=== PATIENT | female | born 1935 | race Caucasian/White ===

== ENCOUNTER 2019-04-21 16:30 | Emergency (ER) | payer MEDICARE, OTHER ==
[~2019-04-21] VITALS: Ht 170.2 cm; Wt 70.3 kg
--- NOTE | 2019-04-21 16:45 | NUR ---
plPatient to ER bed 8 to gown for evaluation. Side rails up. Report given to Jayme.
[2019-04-21 16:46] VITALS: BP_SYST 154
--- NOTE | 2019-04-21 16:50 | NUR ---
pt came for multiple complaints, lethargy, BLE, altered mental status. Pt currently AO4, resting in bed comfortably with family at bedside, pt awaiting
--- NOTE | 2019-04-21 16:52 | NUR ---
DR RITCHIE AT BEDSIDE FOR EVALUATION
--- NOTE | 2019-04-21 16:55 | NUR ---
DR RITCHIE REQUESTING TO SPEAK WITH FAMILY, FAMILY CALLED TO BEDSIDE.
--- NOTE | 2019-04-21 17:00 | NUR ---
DR RITCHIE SPEAKING WITH FAMILY AND PT IN ROOM 8
--- NOTE | 2019-04-21 17:30 | NUR ---
urine sent to lab
--- NOTE | 2019-04-21 17:40 | NUR ---
labs collected at bedside
[2019-04-21 17:54] LABS: BASOPHILS # (AUTO) 0.1 K/uL (0.0-0.2); EOSINOPHILS # (AUTO) 0.1 K/uL (0.0-0.4); HEMATOCRIT 28.3 % (36-48); HEMOGLOBIN 9.5 g/dL (12.0-16.0); LYMPHOCYTES # (AUTO) 1.7 K/uL (1.0-5.5); LYMPHOCYTES % (AUTO) 26.9 % (20.5-51.5); MEAN CORPUSCULAR HEMOGLOBIN 33 pg (27-31); MEAN CORPUSCULAR HGB CONC 34 % (32-36); MEAN CORPUSCULAR VOLUME 98 fL (79.0-98.0); MONOCYTES # (AUTO) 0.3 K/uL (0.0-1.0); MONOCYTES % (AUTO) 5.1 % (1.7-9.3); NEUTROPHILS # (AUTO) 4.1 K/uL (1.8-7.7); PLATELET COUNT (AUTO) 228 K/uL (130-430); RED BLOOD CELL COUNT(AUTO) 2.89 MIL/uL (4.2-6.2); RED CELL DISTRIBUTION WIDTH 13.3 % (9.0-15.0); WHITE BLOOD COUNT (AUTO) 6.3 K/uL (4.8-10.8)
[2019-04-21 18:03] LABS: BILIRUBIN,URINE NEGATIVE (NEGATIVE); BLOOD, URINE 1+ (NEGATIVE); CLARITY/URINE CLEAR (CLEAR); COLOR,URINE YELLOW (YELLOW); GLUCOSE,URINE NEGATIVE (NEGATIVE); KETONES,URINE NEGATIVE (NEGATIVE); LEUKOCYTE ESTERASE ,URINE TRACE (NEGATIVE); NITRITE, URINE NEGATIVE (NEGATIVE); PROTEIN URINE 2+ (NEGATIVE); UROBILINOGEN,URINE 0.2 (0.2-1.0)
[2019-04-21 18:10] LABS: ANION GAP 8 (5-15); CALCIUM 8.4 mg/dL (8.4-11.0); CHLORIDE 102 mmol/L (98-107); CREATININE 2.25 mg/dL (0.55-1.30); GLUCOSE 229 mg/dL (70-99); POTASSIUM 4.3 mmol/L (3.5-5.1); SODIUM SERUM 133 mmol/L (136-145); UREA NITROGEN, BLOOD 46 mg/dL (8-21)
[2019-04-21 18:15] LABS: ALANINE AMINOTRANSFERASE 24 U/L (12-78); ALBUMIN 3.6 g/dL (3.4-4.8); ASPARTATE AMINOTRANSFERASE 22 U/L (10-37); TOTAL BILIRUBIN 0.4 mg/dL (0.0-1.0)
[2019-04-21] MEDS ORDERED: INSULIN REGULAR, HUMAN 10 UNITS/0.1 ML INJ SUBCUT ONE (18:15)
--- NOTE | 2019-04-21 18:30 | NUR ---
pt given insulin humulin R 3 units given for blood glucose 198, tolerated well. Will continue to monitor
[2019-04-21 18:35] LABS: BACTERIA,URINE FEW /HPF (None Seen); MUCUS,URINE None Seen /LPF (None Seen); RBC,URINE NONE SEEN /HPF (0-3)
[2019-04-21 19:10] VITALS: BP_SYST 154
--- NOTE | 2019-04-21 19:10 | NUR ---
Patient given written and verbal discharge instructions and verbalizes understanding. ER MD discussed with patient the results and treatment provided. Patient in stable condition. ID arm band removed. Patient educated on pain management and to follow up with PMD. Pain Scale 0. Opportunity for questions provided and answered. Medication side effect fact sheet provided.
== END 2019-04-21 19:10 | disposition home or self-care (01) ==
LOC: SED 16:30
DX: E11.65 Type 2 diabetes mellitus with hyperglycemia (principal); D64.9 Anemia, unspecified; I13.0 Hypertensive heart and chronic kidney disease with heart failure and stage 1 through stage 4 chronic kidney disease, or unspecified chronic kidney disease; E11.22 Type 2 diabetes mellitus with diabetic chronic kidney disease; N18.9 Chronic kidney disease, unspecified; I50.9 Heart failure, unspecified; Z91.14 Patient's other noncompliance with medication regimen
CPT/HCPCS: 36415; 71045; 80053; 81000-TC; 82962; 83880; 84484; 85025; 93005; 96372; 99284; J1815

== ENCOUNTER 2022-06-03 13:30 | Inpatient (IN) | payer OTHER ==
[~2022-06-03] VITALS: Ht 157.5 cm; Wt 62.1 kg
[2022-06-03 13:30] VITALS: BP_SYST 148
[2022-06-03] MEDS ORDERED: cefTRIAXone 1 GM IVPB PREMIX 50 ML IV ONE (13:45)
[2022-06-03 14:49] LABS: BASOPHILS % (AUTO) 0.8 % (0.0-2.0); EOSINOPHILS # (AUTO) 0.2 K/uL (0.0-0.4); EOSINOPHILS % (AUTO) 3.6 % (0.0-4.0); HEMATOCRIT 24.1 % (36-48); HEMOGLOBIN 8.2 g/dL (12.0-16.0); LYMPHOCYTES # (AUTO) 1.1 K/uL (1.0-5.5); MEAN CORPUSCULAR HEMOGLOBIN 33 pg (27-31); MEAN CORPUSCULAR HGB CONC 34 % (32-36); MEAN CORPUSCULAR VOLUME 98 fL (79.0-98.0); MONOCYTES # (AUTO) 0.4 K/uL (0.0-1.0); MONOCYTES % (AUTO) 7.8 % (1.7-9.3); NEUTROPHILS % (AUTO) 64.8 % (40.0-70.0); PLATELET COUNT (AUTO) 197 K/uL (130-430); RED BLOOD CELL COUNT(AUTO) 2.47 MIL/uL (4.2-6.2); RED CELL DISTRIBUTION WIDTH 13.8 % (9.0-15.0); WHITE BLOOD COUNT (AUTO) 4.6 K/uL (4.8-10.8)
[2022-06-03 14:59] LABS: ALANINE AMINOTRANSFERASE 15 U/L (12-78); ALBUMIN 3.6 g/dL (3.4-4.8); ANION GAP 17 (5-15); ASPARTATE AMINOTRANSFERASE 18 U/L (10-37); CALCIUM 9.1 mg/dL (8.4-11.0); CHLORIDE 98 mmol/L (98-107); CREATININE 3.32 mg/dL (0.55-1.30); GLUCOSE 125 mg/dL (70-99); TOTAL BILIRUBIN 0.4 mg/dL (0.0-1.0)
[2022-06-03] MEDS ORDERED: CLOP75TA32 PO (15:18)
[2022-06-03] MEDS ORDERED: FURO-149 PO (15:18)
[2022-06-03] MEDS ORDERED: FERR325T91 PO (15:18)
[2022-06-03] MEDS ORDERED: HYDR100T25 PO (15:19)
[2022-06-03] MEDS ORDERED: LORA0.5T PO (15:19)
[2022-06-03] MEDS ORDERED: CLON0.1T PO (15:19)
[2022-06-03] MEDS ORDERED: METO-442 PO (15:19)
[2022-06-03] MEDS ORDERED: MEGE40TA PO (15:19)
[2022-06-03] MEDS ORDERED: NIFE30TA84 PO (15:19)
[2022-06-03] MEDS ORDERED: NACL 0.9% 1,000 ML IV ONE (16:45)
[2022-06-03] MEDS: 0.45% NACL 1,000 ML IV SCH (18:40)
[2022-06-03 20:49] VITALS: BP_SYST 168
[2022-06-04] VITALS: BP_SYST 143
[2022-06-04 07:50] VITALS: BP_SYST 158
[2022-06-04 12:01] VITALS: BP_SYST 154
[2022-06-04] MEDS ORDERED: METOPROLOL TARTRATE 50 MG TABLET PO ONE (12:15)
[2022-06-04] MEDS: 0.45% NACL 1,000 ML IV SCH ×2 (12:26→21:10)
[2022-06-04] MEDS: MEGESTROL ACETATE 40 MG TABLET PO SCH ×2 (15:38→21:10)
[2022-06-04] MEDS: cloNIDine HCL 0.1 MG TABLET PO PRN (15:38)
[2022-06-04 16:41] VITALS: BP_SYST 153
[2022-06-04 20:00] VITALS: BP_SYST 149
[2022-06-04] MEDS ORDERED: PANTOPRAZOLE SODIUM 40 MG/VIAL (PROTONIX) IVP ONE (20:00)
[2022-06-04] MEDS: hydrALAZINE HCL 25 MG TABLET PO SCH (21:09)
[2022-06-04] MEDS: INSULIN REGULAR, HUMAN 100 UNITS/ML, 3 ML VIAL (humuLIN R) SUBCUT PRN (21:20)
[2022-06-05 01:29] VITALS: BP_SYST 132
[2022-06-05 04:27] LABS: BASOPHILS % (AUTO) 0.9 % (0.0-2.0); EOSINOPHILS # (AUTO) 0.2 K/uL (0.0-0.4); EOSINOPHILS % (AUTO) 4.1 % (0.0-4.0); LYMPHOCYTES # (AUTO) 1.7 K/uL (1.0-5.5); LYMPHOCYTES % (AUTO) 33.1 % (20.5-51.5); MEAN CORPUSCULAR HEMOGLOBIN 33 pg (27-31); MEAN CORPUSCULAR HGB CONC 35 % (32-36); MEAN CORPUSCULAR VOLUME 97 fL (79.0-98.0); MONOCYTES # (AUTO) 0.5 K/uL (0.0-1.0); MONOCYTES % (AUTO) 9.1 % (1.7-9.3); NEUTROPHILS # (AUTO) 2.7 K/uL (1.8-7.7); NEUTROPHILS % (AUTO) 52.8 % (40.0-70.0); PLATELET COUNT (AUTO) 169 K/uL (130-430); RED BLOOD CELL COUNT(AUTO) 2.08 MIL/uL (4.2-6.2); RED CELL DISTRIBUTION WIDTH 13.8 % (9.0-15.0); WHITE BLOOD COUNT (AUTO) 5.1 K/uL (4.8-10.8)
[2022-06-05 04:43] LABS: ANION GAP 13 (5-15); CALCIUM 7.9 mg/dL (8.4-11.0); CHLORIDE 106 mmol/L (98-107); GLUCOSE 105 mg/dL (70-99); UREA NITROGEN, BLOOD 88 mg/dL (8-21)
[2022-06-05 06:59] LABS: HEMOGLOBIN 6.9 g/dL (12.0-16.0)
[2022-06-05 07:00] LABS: HEMATOCRIT 20.1 % (36-48)
[2022-06-05 08:00] VITALS: BP_SYST 142
[2022-06-05] MEDS: MEGESTROL ACETATE 40 MG TABLET PO SCH ×3 (08:37→20:40)
[2022-06-05] MEDS: METOPROLOL TARTRATE 50 MG TABLET PO SCH (08:37)
[2022-06-05] MEDS: PANTOPRAZOLE SODIUM 40 MG/VIAL (PROTONIX) IVP SCH (08:38)
[2022-06-05] MEDS: hydrALAZINE HCL 25 MG TABLET PO SCH ×2 (08:39→20:42)
[2022-06-05] MEDS ORDERED: CLOPIDOGREL BISULFATE 75 MG TABLET PO SCH (09:00)
[2022-06-05] MEDS: 0.45% NACL 1,000 ML IV SCH ×2 (10:00→23:20)
[2022-06-05 11:47] VITALS: BP_SYST 113
[2022-06-05 16:46] VITALS: BP_SYST 121
[2022-06-05 17:52] LABS: TOTAL IRON BIND. CAPACITY 181 ug/dL (250-450)
[2022-06-05 20:00] VITALS: BP_SYST 152
[2022-06-05] MEDS: DOCUSATE SODIUM 100 MG CAPSULE PO SCH (20:41)
[2022-06-06 00:54] VITALS: BP_SYST 141
[2022-06-06 07:28] LABS: ANION GAP 12 (5-15); CALCIUM 8.4 mg/dL (8.4-11.0); CHLORIDE 106 mmol/L (98-107); CREATININE 2.65 mg/dL (0.55-1.30); GLUCOSE 94 mg/dL (70-99); UREA NITROGEN, BLOOD 83 mg/dL (8-21)
[2022-06-06 07:38] LABS: BASOPHILS % (AUTO) 0.9 % (0.0-2.0); EOSINOPHILS # (AUTO) 0.2 K/uL (0.0-0.4); EOSINOPHILS % (AUTO) 4.2 % (0.0-4.0); HEMATOCRIT 28.5 % (36-48); HEMOGLOBIN 9.8 g/dL (12.0-16.0); LYMPHOCYTES # (AUTO) 1.4 K/uL (1.0-5.5); LYMPHOCYTES % (AUTO) 25.1 % (20.5-51.5); MEAN CORPUSCULAR HEMOGLOBIN 32 pg (27-31); MEAN CORPUSCULAR HGB CONC 34 % (32-36); MEAN CORPUSCULAR VOLUME 93 fL (79.0-98.0); MONOCYTES # (AUTO) 0.5 K/uL (0.0-1.0); MONOCYTES % (AUTO) 9.3 % (1.7-9.3); NEUTROPHILS # (AUTO) 3.4 K/uL (1.8-7.7); NEUTROPHILS % (AUTO) 60.5 % (40.0-70.0); PLATELET COUNT (AUTO) 158 K/uL (130-430); RED BLOOD CELL COUNT(AUTO) 3.06 MIL/uL (4.2-6.2); RED CELL DISTRIBUTION WIDTH 16.1 % (9.0-15.0); WHITE BLOOD COUNT (AUTO) 5.6 K/uL (4.8-10.8)
[2022-06-06 08:03] VITALS: BP_SYST 175
[2022-06-06] MEDS: PANTOPRAZOLE SODIUM 40 MG/VIAL (PROTONIX) IVP SCH (08:33)
[2022-06-06] MEDS: MEGESTROL ACETATE 40 MG TABLET PO SCH ×3 (08:34→20:58)
[2022-06-06] MEDS: DOCUSATE SODIUM 100 MG CAPSULE PO SCH ×2 (08:34→20:58)
[2022-06-06] MEDS: METOPROLOL TARTRATE 50 MG TABLET PO SCH (08:34)
[2022-06-06] MEDS: hydrALAZINE HCL 25 MG TABLET PO SCH ×2 (08:34→20:57)
[2022-06-06 11:33] VITALS: BP_SYST 104
[2022-06-06] MEDS: 0.45% NACL 1,000 ML IV SCH ×2 (12:40→19:26)
[2022-06-06 15:22] VITALS: BP_SYST 153
[2022-06-06] MEDS ORDERED: METHYL SALICYLATE/MENTH/CAMPH 57 GM CREAM..G. TP ONE (18:00)
[2022-06-06 20:00] VITALS: BP_SYST 181
[2022-06-06] MEDS: METHYL SALICYLATE/MENTH/CAMPH 57 GM CREAM..G. TP SCH (21:08)
[2022-06-07] VITALS (7 sets, daily range): BP systolic 127–181
[2022-06-07] MEDS: cloNIDine HCL 0.1 MG TABLET PO PRN ×2 (06:41→20:53)
[2022-06-07 07:17] LABS: BASOPHILS % (AUTO) 0.7 % (0.0-2.0); EOSINOPHILS # (AUTO) 0.2 K/uL (0.0-0.4); EOSINOPHILS % (AUTO) 3.7 % (0.0-4.0); HEMATOCRIT 29.7 % (36-48); HEMOGLOBIN 10.2 g/dL (12.0-16.0); LYMPHOCYTES # (AUTO) 1.2 K/uL (1.0-5.5); LYMPHOCYTES % (AUTO) 20.1 % (20.5-51.5); MEAN CORPUSCULAR HEMOGLOBIN 32 pg (27-31); MEAN CORPUSCULAR HGB CONC 34 % (32-36); MEAN CORPUSCULAR VOLUME 93 fL (79.0-98.0); MONOCYTES # (AUTO) 0.6 K/uL (0.0-1.0); MONOCYTES % (AUTO) 9.7 % (1.7-9.3); NEUTROPHILS % (AUTO) 65.8 % (40.0-70.0); PLATELET COUNT (AUTO) 162 K/uL (130-430); WHITE BLOOD COUNT (AUTO) 6.1 K/uL (4.8-10.8)
[2022-06-07 07:33] LABS: ALANINE AMINOTRANSFERASE 18 U/L (12-78); ANION GAP 12 (5-15); ASPARTATE AMINOTRANSFERASE 17 U/L (10-37); CALCIUM 8.6 mg/dL (8.4-11.0); CHLORIDE 107 mmol/L (98-107); CREATININE 2.39 mg/dL (0.55-1.30); GLUCOSE 127 mg/dL (70-99); TOTAL BILIRUBIN 0.5 mg/dL (0.0-1.0); UREA NITROGEN, BLOOD 74 mg/dL (8-21)
[2022-06-07] MEDS: PANTOPRAZOLE SODIUM 40 MG/VIAL (PROTONIX) IVP SCH (08:24)
[2022-06-07] MEDS: METHYL SALICYLATE/MENTH/CAMPH 57 GM CREAM..G. TP SCH ×3 (08:24→21:16)
[2022-06-07] MEDS: MEGESTROL ACETATE 40 MG TABLET PO SCH ×3 (08:25→21:07)
[2022-06-07] MEDS: DOCUSATE SODIUM 100 MG CAPSULE PO SCH ×2 (08:25→20:50)
[2022-06-07] MEDS: METOPROLOL TARTRATE 50 MG TABLET PO SCH (08:27)
[2022-06-07] MEDS: hydrALAZINE HCL 25 MG TABLET PO SCH ×2 (08:28→20:50)
[2022-06-07] MEDS: INSULIN REGULAR, HUMAN 100 UNITS/ML, 3 ML VIAL (humuLIN R) SUBCUT PRN ×2 (11:52→21:13)
[2022-06-07] MEDS: 0.45% NACL 1,000 ML IV SCH (15:25)
[2022-06-08 00:22] VITALS: BP_SYST 136
[2022-06-08 00:24] VITALS: BP_SYST 136
[2022-06-08] MEDS: 0.45% NACL 1,000 ML IV SCH ×2 (05:27→18:39)
[2022-06-08 06:57] LABS: BASOPHILS % (AUTO) 0.7 % (0.0-2.0); EOSINOPHILS # (AUTO) 0.2 K/uL (0.0-0.4); EOSINOPHILS % (AUTO) 4.8 % (0.0-4.0); HEMATOCRIT 25.7 % (36-48); HEMOGLOBIN 8.9 g/dL (12.0-16.0); LYMPHOCYTES # (AUTO) 1.3 K/uL (1.0-5.5); LYMPHOCYTES % (AUTO) 25.2 % (20.5-51.5); MEAN CORPUSCULAR HEMOGLOBIN 32 pg (27-31); MEAN CORPUSCULAR HGB CONC 35 % (32-36); MEAN CORPUSCULAR VOLUME 93 fL (79.0-98.0); MONOCYTES # (AUTO) 0.5 K/uL (0.0-1.0); MONOCYTES % (AUTO) 10.3 % (1.7-9.3); NEUTROPHILS # (AUTO) 3.1 K/uL (1.8-7.7); PLATELET COUNT (AUTO) 145 K/uL (130-430); RED BLOOD CELL COUNT(AUTO) 2.78 MIL/uL (4.2-6.2); RED CELL DISTRIBUTION WIDTH 15.8 % (9.0-15.0); WHITE BLOOD COUNT (AUTO) 5.2 K/uL (4.8-10.8)
[2022-06-08 08:00] VITALS: BP_SYST 134
[2022-06-08 08:06] LABS: CANCER AG, 125 12.2 U/mL (0.0-38.1); CARBOHYDRATE AG 19-9 <2 U/mL (0-35); CEA 6.9 ng/mL (0.0-4.7)
[2022-06-08 08:09] LABS: ALANINE AMINOTRANSFERASE 20 U/L (12-78); ALBUMIN 2.6 g/dL (3.4-4.8); ANION GAP 12 (5-15); ASPARTATE AMINOTRANSFERASE 17 U/L (10-37); CALCIUM 7.7 mg/dL (8.4-11.0); CHLORIDE 108 mmol/L (98-107); CREATININE 2.58 mg/dL (0.55-1.30); GLUCOSE 98 mg/dL (70-99); TOTAL BILIRUBIN 0.4 mg/dL (0.0-1.0); UREA NITROGEN, BLOOD 72 mg/dL (8-21)
[2022-06-08] MEDS: DOCUSATE SODIUM 100 MG CAPSULE PO SCH ×2 (09:25→21:23)
[2022-06-08] MEDS: PANTOPRAZOLE SODIUM 40 MG/VIAL (PROTONIX) IVP SCH (09:29)
[2022-06-08] MEDS: hydrALAZINE HCL 25 MG TABLET PO SCH ×2 (09:29→21:23)
[2022-06-08] MEDS: MEGESTROL ACETATE 40 MG TABLET PO SCH ×3 (09:30→21:22)
[2022-06-08] MEDS: METOPROLOL TARTRATE 50 MG TABLET PO SCH (09:30)
[2022-06-08] MEDS: METHYL SALICYLATE/MENTH/CAMPH 57 GM CREAM..G. TP SCH ×3 (09:35→21:34)
[2022-06-08 11:23] VITALS: BP_SYST 135
[2022-06-08 15:00] VITALS: BP_SYST 121
[2022-06-08 20:00] VITALS: BP_SYST 131
[2022-06-08] MEDS: INSULIN REGULAR, HUMAN 100 UNITS/ML, 3 ML VIAL (humuLIN R) SUBCUT PRN (21:34)
[2022-06-09] VITALS: BP_SYST 136
[2022-06-09 03:07] LABS: CA 27.29 6.6 U/mL (0.0-38.6)
[2022-06-09 08:07] VITALS: BP_SYST 158
[2022-06-09] MEDS: PANTOPRAZOLE SODIUM 40 MG/VIAL (PROTONIX) IVP SCH (09:42)
[2022-06-09] MEDS: MEGESTROL ACETATE 40 MG TABLET PO SCH ×2 (09:42→15:42)
[2022-06-09] MEDS: METOPROLOL TARTRATE 50 MG TABLET PO SCH (09:43)
[2022-06-09] MEDS: DOCUSATE SODIUM 100 MG CAPSULE PO SCH (09:43)
[2022-06-09] MEDS: hydrALAZINE HCL 25 MG TABLET PO SCH (09:44)
[2022-06-09] MEDS: METHYL SALICYLATE/MENTH/CAMPH 57 GM CREAM..G. TP SCH ×2 (10:01→15:44)
[2022-06-09 10:30] LABS: BASOPHILS # (AUTO) 0.1 K/uL (0.0-0.2); BASOPHILS % (AUTO) 0.9 % (0.0-2.0); EOSINOPHILS # (AUTO) 0.3 K/uL (0.0-0.4); HEMATOCRIT 31.4 % (36-48); HEMOGLOBIN 10.7 g/dL (12.0-16.0); LYMPHOCYTES # (AUTO) 1.3 K/uL (1.0-5.5); LYMPHOCYTES % (AUTO) 24.3 % (20.5-51.5); MEAN CORPUSCULAR HEMOGLOBIN 32 pg (27-31); MEAN CORPUSCULAR HGB CONC 34 % (32-36); MEAN CORPUSCULAR VOLUME 94 fL (79.0-98.0); MONOCYTES # (AUTO) 0.5 K/uL (0.0-1.0); MONOCYTES % (AUTO) 9.3 % (1.7-9.3); NEUTROPHILS # (AUTO) 3.3 K/uL (1.8-7.7); NEUTROPHILS % (AUTO) 60.5 % (40.0-70.0); PLATELET COUNT (AUTO) 166 K/uL (130-430); RED BLOOD CELL COUNT(AUTO) 3.34 MIL/uL (4.2-6.2); RED CELL DISTRIBUTION WIDTH 15.9 % (9.0-15.0); WHITE BLOOD COUNT (AUTO) 5.5 K/uL (4.8-10.8)
[2022-06-09 12:30] VITALS: BP_SYST 149
[2022-06-09] MEDS: 0.45% NACL 1,000 ML IV SCH (15:43)
[2022-06-09 16:30] VITALS: BP_SYST 141
[2022-06-09 20:13] VITALS: BP_SYST 161
[2022-06-09] MEDS: cloNIDine HCL 0.1 MG TABLET PO PRN (20:58)
== END 2022-06-09 21:05 | disposition hospice, home (50) | DRG 812 ==
LOC: SED 13:30 → STU 17:55
PROVIDERS: ADMIT Internal Medicine; ATTEND Internal Medicine
PROC: 30233N1 Transfusion of Nonautologous Red Blood Cells into Peripheral Vein, Percutaneous Approach (ICD-10-PCS; principal; 2022-06-05)
DX: D62 Acute posthemorrhagic anemia (principal); E44.0 Moderate protein-calorie malnutrition; E87.1 Hypo-osmolality and hyponatremia; I13.2 Hypertensive heart and chronic kidney disease with heart failure and with stage 5 chronic kidney disease, or end stage renal disease; N18.5 Chronic kidney disease, stage 5; D63.1 Anemia in chronic kidney disease; E11.22 Type 2 diabetes mellitus with diabetic chronic kidney disease; E78.5 Hyperlipidemia, unspecified; G30.9 Alzheimer's disease, unspecified; F02.80 Dementia in other diseases classified elsewhere, unspecified severity, without behavioral disturbance, psychotic disturbance, mood disturbance, and anxiety; I50.9 Heart failure, unspecified; Z20.822 Contact with and (suspected) exposure to COVID-19; Z79.02 Long term (current) use of antithrombotics/antiplatelets; Z85.3 Personal history of malignant neoplasm of breast; Z86.73 Personal history of transient ischemic attack (TIA), and cerebral infarction without residual deficits; Z90.12 Acquired absence of left breast and nipple; Z88.8 Allergy status to other drugs, medicaments and biological substances; Z79.899 Other long term (current) drug therapy
CPT/HCPCS: 36415; 71045; 71250-TC; 76376; 76770; 80048; 80053; 82378; 83037; 83540; 83550; 83605; 83880; 83970; 84484; 85025; 85044; 86300; 86301; 86304; 86886; 86900; 86901; 86920; 87040; 93005; 93306; 96365; 97110-GP; 97116-GP; 97530-GP; 99285; C9113; G0378; J0696; J1815; P9021